=== PATIENT | female | born 1975 | race African-American/Black ===

== ENCOUNTER 2017-12-11 20:14 | Emergency (ER) | payer OTHER ==
[~2017-12-11] VITALS: Ht 165.1 cm; Wt 100.0 kg
[2017-12-11] MEDS ORDERED: MORPHINE SULFATE 4 MG/ML CPJ (NOT FOR IM USE) IV STA (23:15)
[2017-12-11] MEDS ORDERED: ONDANSETRON HCL 4MG/2ML VIAL IV STA (23:15)
[2017-12-11] MEDS ORDERED: SODIUM CHLORIDE 0.9% 1,000 ML IV ONE (23:15)
[2017-12-12 00:01] LABS: CHLORIDE 108 mEq/L (98-107)
[2017-12-12 00:03] LABS: BASOPHILS % 0.6 % (0.0-2.0); EOSINOPHILS % 3.8 % (0.0-5.0); HEMATOCRIT. 34.5 % (36.0-48.0); HEMOGLOBIN. 11.3 g/dL (12.0-16.0); LYMPHOCYTES % 45.6 % (20.0-50.0); MEAN CORPUSCULAR HEMOGLOBIN 26.1 pg (28.0-32.0); MEAN CORPUSCULAR VOLUME 79.8 fL (81.0-99.0); MONOCYTES % 11.7 % (2.0-8.0); NEUTROPHILS % 38.3 % (40.0-76.0); PLATELET 332 x1000/uL (130-400); RED BLOOD CELL COUNT 4.32 mill/uL (4.2-5.4); RED CELL DISTRIBUTION WIDTH 14.1 % (11.6-14.6)
[2017-12-12 00:10] LABS: T4 FREE 1.09 ng/dL (0.76-1.46)
[2017-12-12] MEDS ORDERED: IBUPROFEN 600MG TABLET PO ONE (00:15)
[2017-12-12] MEDS ORDERED: IOHEXOL-300 100 ML BOTTLE ONE (00:54)
[2017-12-12 03:07] VITALS: BP 122/83
== END 2017-12-12 04:59 | disposition home or self-care (01) ==
LOC: ER 22:23
DX: E05.90 Thyrotoxicosis, unspecified without thyrotoxic crisis or storm (principal); M54.2 Cervicalgia; R51 Headache; R07.9 Chest pain, unspecified; R06.02 Shortness of breath; H53.8 Other visual disturbances; J45.909 Unspecified asthma, uncomplicated
CPT/HCPCS: 36415; 70491; 71045; 80053; 84439; 84484; 85025; 93005; 96360; 96361; 99285; J7030; Q9967; Z7610; J2270; J2405

== ENCOUNTER 2018-04-07 17:00 | Emergency (ER) | payer OTHER, MEDICAID ==
[~2018-04-07] VITALS: Ht 165.1 cm; Wt 104.4 kg
[2018-04-07] MEDS ORDERED: ONDANSETRON HCL 4MG/2ML INJ IV STA (18:19)
[2018-04-07] MEDS ORDERED: PANTOPRAZOLE SODIUM 40 MG/VIAL IV STA (18:19)
[2018-04-07] MEDS ORDERED: VISCOUS LIDOCAINE 2% 15 ML UDC PO STA (18:19)
[2018-04-07] MEDS ORDERED: FAMOTIDINE 20MG/2ML VIAL IV STA (18:19)
[2018-04-07] MEDS ORDERED: MAGNESIUM/ALUMINUM HYDROXIDE/SIMETHICONE 30ML UDC PO STA (18:19)
[2018-04-07 18:34] LABS: BASOPHILS % 0.3 % (0.0-2.0); EOSINOPHILS % 3.1 % (0.0-5.0); HEMATOCRIT. 36.5 % (36.0-48.0); HEMOGLOBIN. 11.7 g/dL (12.0-16.0); LYMPHOCYTES % 54.3 % (20.0-50.0); MEAN CORPUSCULAR HEMOGLOBIN 25.4 pg (28.0-32.0); MEAN PLATELET VOLUME 8.1 fl (7.4-10.4); MONOCYTES % 10.9 % (2.0-8.0); NEUTROPHILS % 31.4 % (40.0-76.0); PLATELET 367 x1000/uL (130-400); RED BLOOD CELL COUNT 4.63 mill/uL (4.2-5.4); RED CELL DISTRIBUTION WIDTH 14.4 % (11.6-14.6)
[2018-04-07 18:40] LABS: CHLORIDE 103 mEq/L (98-107)
[2018-04-07 18:41] LABS: PROTHROMBIN TIME 10.3 sec (9.1-11.1)
[2018-04-07 18:45] LABS: HCG SCREEN NEGATIVE
[2018-04-07 18:51] LABS: T4 FREE 1.29 ng/dL (0.76-1.46)
[2018-04-07 19:40] LABS: CLARITY URINE CLEAR (CLEAR); COLOR URINE YELLOW (YELLOW); KETONES URINE NEGATIVE (NEGATIVE); LEUKOCYTE ESTERASE URINE 1+ (NEGATIVE); NITRITE URINE NEGATIVE (NEGATIVE); OCCULT BLOOD URINE NEGATIVE (NEGATIVE); PH URINE >=9.0 (4.5-8.0); PROTEIN URINE NEGATIVE (NEGATIVE); UROBILINOGEN URINE 0.2 E.U./dL (0.2-1.0)
[2018-04-08 01:45] VITALS: BP 121/72
== END 2018-04-08 02:14 | disposition home or self-care (01) ==
LOC: ER 17:00
DX: R07.89 Other chest pain (principal); N39.0 Urinary tract infection, site not specified; Z87.891 Personal history of nicotine dependence; J45.909 Unspecified asthma, uncomplicated; E05.90 Thyrotoxicosis, unspecified without thyrotoxic crisis or storm; Z98.890 Other specified postprocedural states; Z88.8 Allergy status to other drugs, medicaments and biological substances
CPT/HCPCS: 36415; 71045; 80053; 81003; 81025; 84439; 84443; 84484; 84703; 85025; 85610; 93005; 96374; 96375; 99285; J2405; J3490; Z7610